=== PATIENT | male | born 1930 | race Caucasian/White ===

== ENCOUNTER 2017-01-25 12:17 | Emergency (ER) | payer MEDICARE ==
[~2017-01-25] VITALS: Ht 175.3 cm; Wt 78.0 kg
[2017-01-25 12:19] VITALS: TEMP 36.3; Ht 175.3 cm; Wt 78.0 kg
[2017-01-25 12:43] VITALS: O2SAT 95
--- NOTE | 2017-01-25 13:16 | DIAGNOSTIC IMAGING REPORT ---
SINGLE VIEW CHEST CLINICAL HISTORY: Dyspnea. Dizziness. FINDINGS: An AP, portable, upright chest radiograph is obtained. No prior studies are available for comparison at the time of dictation. The examination is degraded by portable technique and patient rotation. The heart is top normal for projection and there is atherosclerotic calcification of the thoracic aorta. Chronic interstitial thickening is similar to previous. No airspace consolidation, large pleural effusion, or pneumothorax is seen. The skeletal structures are osteopenic. There are numerous healed bilateral rib fractures. IMPRESSION: No acute cardiopulmonary abnormality. Electronically signed by: Sunil Yates M.D. 01/25/2017 1:15 PM Dictated Date/Time: 01/25/2017 1:14 PM
[2017-01-25] MEDS ORDERED: SODIUM CHLORIDE 0.9% 250ML 250 ML IV STA (13:33)
[2017-01-25] MEDS ORDERED: SODIUM CHLORIDE 0.9% 1000ML 1,000 ML IV STA (13:33)
[2017-01-25 13:41] LABS: BASO % 0.2 %; BASO ABS # 0.02 K/uL (0-0.2); COMPLETE YES; EOS % 2.2 %; HEMATOCRIT 43.8 % (42-52); IG% 0.3 %; LYMPH % 9.1 %; LYMPH ABS # 0.82 K/uL (1.2-3.4); MEAN CELL VOLUME 91.1 fL (80-100); MEAN CORPUSCULAR HEMOGLOBIN 31.4 pg (25-34); MEAN CORPUSCULAR HGB CONC 34.5 g/dl (32-36); MEAN PLATELET VOLUME 10.7 fL (7.4-10.4); MONO % 9.6 %; NEUT % 78.6 %; PLATELET COUNT 182 K/uL (130-400); RED BLOOD COUNT 4.81 M/uL (4.7-6.1); WHITE BLOOD COUNT 9.05 K/uL (4.8-10.8)
[2017-01-25 13:49] LABS: PARTIAL THROMBOPLASTIN RATIO 1.1; PROTHROMBIN TIME (PATIENT) 10.6 SECONDS (9.0-12.0)
[2017-01-25 14:05] LABS: BUN/CREATININE RATIO 16.2 (10-20); CALCIUM 8.7 mg/dl (8.5-10.1); CREATININE 1.64 mg/dl (0.60-1.40); MAGNESIUM 2.4 mg/dl (1.8-2.4); POTASSIUM 3.8 mmol/L (3.5-5.1)
[2017-01-25 14:16] LABS: CKMB/CK RATIO 0.9 (0-3.0); THYROID STIMULATING HORMONE 1.57 uIu/ml (0.300-4.500)
[2017-01-25] MEDS ORDERED: ASPI81TA28 PO (14:16)
[2017-01-25] MEDS ORDERED: AMLO-3 PO (14:16)
[2017-01-25] MEDS ORDERED: FINA5TAB PO (14:16)
[2017-01-25] MEDS ORDERED: SIMV10TA2 PO (14:16)
[2017-01-25] MEDS ORDERED: DOXA2TAB PO (14:16)
[2017-01-25 15:43] LABS: URINE APPEARANCE CLEAR (CLEAR); URINE BILIRUBIN NEG (NEG); URINE COLOR YELLOW; URINE NITRITE NEG (NEG); UROBILINOGEN NEG (NEG); ZZUR CULT IF INDIC CLEAN CATCH NO
[2017-01-25 15:47] VITALS: O2SAT 96
[2017-01-25 15:57] LABS: MANUAL MICROSCOPIC REQUIRED? NO; REVIEW REQ? YES
--- NOTE | 2017-01-25 16:28 | EMERGENCY ROOM VISIT NOTE ---
History Report prepared by Bunny: Mike Bunch Under the Supervision of: Dr. Michelle Hood M.D. First contact with patient: 12:27 Chief Complaint: RESPIRATORY PROBLEMS Stated Complaint: SHORTNESS OF BREATH, DIZZY History of Present Illness The patient is a 86 year old male who presents to the Emergency Room with complaints of persistent shortness of breath beginning a few days ago. He also complains of dizziness beginning this morning. His dizziness is not worsened when his shortness of breath is worse. He states that his dizziness is worsened with bending over. The patient describes his dizziness as a feeling of "spinning ". He denies chest pain, nausea, vomiting, abdominal pain, numbness, or focal weakness. He states that he had a few minute long episode of his arm feeling abnormal a few days ago. The patient takes baby aspirin, but is not on any other blood thinning medication. Per family, the patient's gait has been normal recently. The patient has a history of CVA. Source of History: patient Onset: A few days ago Quality: other (shortness of breath) Timing: other (persistent) Associated Symptoms: No chest pain, No nausea, No vomiting, No abdominal pain, No weakness (focal), No numbness Note: The patient also complains of dizziness beginning this morning. Review of Systems See HPI for pertinent positives & negatives. A total of 10 systems reviewed and were otherwise negative. Past Medical & Surgical Medical Problems: (1) Asthma (2) Heart disease (3) HTN (hypertension) Family History No pertinent family history stated. Social History Smoking Status: Former Smoker Marital Status: Housing Status: lives with family Occupation Status: retired Current/Historical Medications Scheduled Amlodipine Besylate-Olmesartan (Carmelo), 1 TAB PO DAILY Aspirin (Aspirin Ec), 81 MG PO DAILY Doxazosin Mesylate (Cardura), 2 MG PO DAILY Finasteride (Proscar), 5 MG PO DAILY Simvastatin (Zocor), 10 MG PO DAILY Allergies Coded Allergies: No Known Allergies (Unverified , 01/25/17) Physical Exam Vital Signs Date Time Temp Pulse Resp B/P (MAP) Pulse Ox O2 Delivery O2 Flow Rate FiO2 01/25/17 17:01 159/76 01/25/17 16:47 60 23 01/25/17 16:17 76 17 01/25/17 16:02 180/82 01/25/17 15:47 58 25 96 01/25/17 15:28 61 176/81 63 163/84 66 153/85 01/25/17 15:25 146/85 01/25/17 15:24 176/81 01/25/17 15:01 160/79 01/25/17 14:47 58 20 96 01/25/17 14:17 60 27 92 01/25/17 14:10 59 20 161/78 95 Room Air 01/25/17 14:01 161/78 01/25/17 13:47 62 23 94 01/25/17 13:45 165/90 01/25/17 13:20 179/77 01/25/17 13:20 65 22 179/77 94 01/25/17 13:18 120/82 01/25/17 13:17 65 26 173/84 95 01/25/17 13:16 157/86 01/25/17 13:16 65 157/86 67 173/84 74 120/82 01/25/17 12:47 67 19 96 01/25/17 12:43 95 Room Air 01/25/17 12:43 96 Room Air 01/25/17 12:39 69 01/25/17 12:35 168/87 01/25/17 12:19 36.3 80 20 164/95 95 Room Air Physical Exam Vital signs reviewed. General: Elderly, generally-well appearing male, in no significant distress. HEENT: No scleral icterus, PERRLA, neck supple. Atraumatic. Cardiovascular: Regular rate and rhythm, no extra sounds. Pulmonary: Clear to auscultation bilaterally, normal work of breathing. Abdomen: Soft, nontender, nondistended, positive bowel sounds. Musculoskeletal: Atraumatic, no peripheral edema. Neurologic: Patient awake alert and oriented x 3 Skin: Warm, dry, no rash Medical Decision & Procedures ER Provider Diagnostic Interpretation: Radiology results as stated below per my review and radiologist interpretation: SINGLE VIEW CHEST FINDINGS: An AP, portable, upright chest radiograph is obtained. No prior studies are available for comparison at the time of dictation. The examination is degraded by portable technique and patient rotation. The heart is top normal for projection and there is atherosclerotic calcification of the thoracic aorta. Chronic interstitial thickening is similar to previous. No airspace consolidation, large pleural effusion, or pneumothorax is seen. The skeletal structures are osteopenic. There are numerous healed bilateral rib fractures. IMPRESSION: No acute cardiopulmonary abnormality. Electronically signed by: Sunil Yates M.D. 01/25/2017 1:15 PM Laboratory Results 01/25/17 12:35 Red Blood Count 4.81, Mean Corpuscular Volume 91.1, Mean Corpuscular Hemoglobin 31.4, Mean Corpuscular Hemoglobin Concent 34.5, Mean Platelet Volume 10.7, Neutrophils (%) (Auto) 78.6, Lymphocytes (%) (Auto) 9.1, Monocytes (%) (Auto) 9.6, Eosinophils (%) (Auto) 2.2, Basophils (%) (Auto) 0.2, Neutrophils # (Auto) 7.11, Lymphocytes # (Auto) 0.82, Monocytes # (Auto) 0.87, Eosinophils # (Auto) 0.20, Basophils # (Auto) 0.02 01/25/17 12:35 Test 01/25/17 00:00 01/25/17 12:35 01/25/17 13:30 Urine Color YELLOW Urine Appearance CLEAR (CLEAR) Urine pH 5.0 (4.5-7.5) Urine Specific Griffin 1.020 (1.000-1.030) Urine Protein TRACE (NEG) Urine Glucose (UA) NEG (NEG) Urine Ketones NEG (NEG) Urine Occult Blood NEG (NEG) Urine Nitrite NEG (NEG) Urine Bilirubin NEG (NEG) Urine Urobilinogen NEG (NEG) Urine Leukocyte Esterase NEG (NEG) Urine WBC (Auto) 1-5 /hpf (0-5) Urine RBC (Auto) 0-4 /hpf (0-4) Urine Hyaline Casts (Auto) 1-5 /lpf (0-5) Urine Epithelial Cells (Auto) 10-20 /lpf (0-5) Urine Bacteria (Auto) NEG (NEG) Urine Sperm (Auto) PRESENT (NOT PRESENT) White Blood Count 9.05 K/uL (4.8-10.8) Red Blood Count 4.81 M/uL (4.7-6.1) Hemoglobin 15.1 g/dL (14.0-18.0) Hematocrit 43.8 % (42-52) Mean Corpuscular Volume 91.1 fL (80-100) Mean Corpuscular Hemoglobin 31.4 pg (25-34) Mean Corpuscular Hemoglobin Concent 34.5 g/dl (32-36) Platelet Count 182 K/uL (130-400) Mean Platelet Volume 10.7 fL (7.4-10.4) Neutrophils (%) (Auto) 78.6 % Lymphocytes (%) (Auto) 9.1 % Monocytes (%) (Auto) 9.6 % Eosinophils (%) (Auto) 2.2 % Basophils (%) (Auto) 0.2 % Neutrophils # (Auto) 7.11 K/uL (1.4-6.5) Lymphocytes # (Auto) 0.82 K/uL (1.2-3.4) Monocytes # (Auto) 0.87 K/uL (0.11-0.59) Eosinophils # (Auto) 0.20 K/uL (0-0.5) Basophils # (Auto) 0.02 K/uL (0-0.2) RDW Standard Deviation 43.0 fL (36.4-46.3) RDW Coefficient of Variation 13.0 % (11.5-14.5) Immature Granulocyte % (Auto) 0.3 % Immature Granulocyte # (Auto) 0.03 K/uL (0.00-0.02) Prothrombin Time 10.6 SECONDS (9.0-12.0) Prothromb Time International Ratio 1.0 (0.9-1.1) Activated Partial Thromboplast Time 28.8 SECONDS (21.0-31.0) Partial Thromboplastin Ratio 1.1 Anion Gap 7.0 mmol/L (3-11) Est Creatinine Clear Calc Drug Dose 31.2 ml/min Estimated GFR () 42.6 Estimated GFR (Non- 36.8 BUN/Creatinine Ratio 16.2 (10-20) Calcium Level 8.7 mg/dl (8.5-10.1) Magnesium Level 2.4 mg/dl (1.8-2.4) Total Bilirubin 0.8 mg/dl (0.2-1) Direct Bilirubin 0.2 mg/dl (0-0.2) Aspartate Amino Transf (AST/SGOT) 24 U/L (15-37) Alanine Aminotransferase (ALT/SGPT) 29 U/L (12-78) Alkaline Phosphatase 105 U/L (45-117) Total Creatine Kinase 382 U/L (39-308) Creatine Kinase MB 3.6 ng/ml (0.5-3.6) Creatine Kinase MB Ratio 0.9 (0-3.0) Pro-B-Type Natriuretic Peptide 243 pg/ml (0-1800) Total Protein 7.8 gm/dl (6.4-8.2) Albumin 3.7 gm/dl (3.4-5.0) Thyroid Stimulating Hormone (TSH) 1.570 uIu/ml (0.300-4.500) Bedside Troponin I < 0.030 ng/ml (0-0.045) Laboratory results per my review. Medications Administered Medications (Trade) Dose Ordered Sig/Efrain Route Start Time Stop Time Status Last Admin Dose Admin Sodium Chloride 250 ml @ 999 mls/hr Q16M STAT IV 01/25/17 13:33 01/25/17 13:48 DC 01/25/17 14:12 999 MLS/HR Sodium Chloride 1,000 ml @ 150 mls/hr Q6H40M STAT IV 01/25/17 13:33 01/25/17 19:09 DC 01/25/17 14:11 150 MLS/HR ECG Indication: SOB/dyspnea Rate (beats per minute): 63 Rhythm: sinus rhythm Findings: 1st degree AV block, no acute ischemic change, no ectopy, other ( Previous inferior infarct) ED Course 1232: Past medical records reviewed. The patient was evaluated in room B7. A complete history and physical examination was performed. 1333: Ordered Sodium Chloride 1000 ml @ 150 mls/hr IV, Sodium Chloride 250 ml @ 999 mls/hr IV. 1340: The patient refused his head CT. 1520: Upon reevaluation, the patient appeared to have improvement of his symptoms. I discussed findings with him. He verbalized agreement of the treatment plan. The patient was discharged home. Medical Decision Differential diagnosis: Etiologies such as benign positional vertigo, dehydration, hypovolemia, anemia, tumor, infection, hypoglycemia, electrolyte abnormalities, cardiac sources, intracerebral event, toxicologic, neurologic, as well as others were entertained. This patient was evaluated and appeared to be in no distress. IV access was obtained and laboratory work was drawn. The patient was placed on the secured entrance monitor and found to be in a sinus rhythm with a first-degree AV block. Patient has positive orthostatic vital signs. IV fluids were initiated. Patient's laboratory work is significant for a prerenal azotemia. There is no previous laboratory work on this patient as he is from out of town, this is presumed to be new. He did seem to have symptomatic improvement and tolerated a lunch tray. Cardiac enzymes are negative. There is no evidence of UTI. Patient feels comfortable with the plan for discharge. He will follow-up with his physician upon return home. He will return to the ER for worsening of symptoms or any medical concerns. Medication Reconcilliation Current Medication List: was personally reviewed by me Blood Pressure Screening Patient's blood pressure: Elevated blood pressure Blood pressure disposition: Referred to PCP Impression Primary Impression: Dehydration Scribe Attestation The scribe's documentation has been prepared under my direction and personally reviewed by me in its entirety. I confirm that the note above accurately reflects all work, treatment, procedures, and medical decision making performed by me. Departure Information Dispostion Home / Self-Care Referrals No Doctor, Assigned (PCP) Forms HOME CARE DOCUMENTATION FORM, IMPORTANT VISIT INFORMATION, WORK / SCHOOL INSTRUCTIONS Patient Instructions Dehydration, My [facility] Additional Instructions Diagnosis: Dehydration Please drink plenty of clear fluids. Eat frequent small meals. Follow-up with your physician upon return home. Return to the ER for worsening of symptoms or any medical concerns.
[2017-01-25 16:47] VITALS: PULSE 60
[2017-01-25 17:01] VITALS: BP 159/76
== END 2017-01-25 18:18 | disposition home or self-care (01) ==
LOC: C.EDB 12:19
DX: E86.0 Dehydration (principal); I44.0 Atrioventricular block, first degree; I10 Essential (primary) hypertension; I51.9 Heart disease, unspecified; J45.909 Unspecified asthma, uncomplicated; Z87.891 Personal history of nicotine dependence; Z79.82 Long term (current) use of aspirin; Z79.899 Other long term (current) drug therapy